=== PATIENT | female | born 1985 | race Caucasian/White ===

== ENCOUNTER 2020-01-05 12:58 | Emergency (ER) | payer SELFPAY ==
--- NOTE | 2020-01-05 14:06 | EDPHYS ---
Physician Documentation [facility] Name: Marilou Delgadillo Age: 34 yrs Sex: Female : 1985 Arrival Date: 01/05/2020 Time: 13:02 Bed 23 Private MD: ED Physician Malvin Lowe HPI: 01/04 14:03 This 34 yrs old Female presents to ER via Ambulatory with complaints of kb Vaginal Problem. 14:03 The patient presents with vaginal discharge, possible FB. Onset: The symptoms/episode kb began/occurred 2 day(s) ago. Modifying factors: The symptoms are alleviated by nothing, the symptoms are aggravated by nothing. Associated signs and symptoms: Pertinent positives: vaginal discharge. Severity of symptoms: At their worst the symptoms were mild, in the emergency department the symptoms are unchanged. The patient is sexually active. The patient has experienced a previous episode. The patient has not recently seen a physician. Pt reports she had some brown, malodorous discharge this morning and can't remember if she took out a tampon on Friday so is concerned that one is still in her vagina. Last day of period was Friday. 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 - Social history:: Smoking status: Patient reports the use of cigarette tobacco products, smokes one pack cigarettes per day. ROS: 14:00 Constitutional: Negative for fever, chills, and weight loss, Cardiovascular: Negative kb for chest pain, palpitations, and edema, Respiratory: Negative for shortness of breath, cough, wheezing, and pleuritic chest pain, Abdomen/GI: Negative for abdominal pain, nausea, vomiting, diarrhea, and constipation, Back: Negative for injury and pain, MS/Extremity: Negative for injury and deformity, Skin: Negative for injury, rash, and discoloration, Neuro: Negative for headache, weakness, numbness, tingling, and seizure. 14:00 : Positive for vaginal discharge, "possible tampon stuck in vagina". Exam: 14:01 Constitutional: This is a well developed, well nourished patient who is awake, alert, kb and in no acute distress. Head/Face: Normocephalic, atraumatic. Chest/axilla: Normal chest wall appearance and motion. Nontender with no deformity. No lesions are appreciated. Cardiovascular: Regular rate and rhythm with a normal S1 and S2. No gallops, murmurs, or rubs. Normal PMI, no JVD. No pulse deficits. Respiratory: Lungs have equal breath sounds bilaterally, clear to auscultation and percussion. No rales, rhonchi or wheezes noted. No increased work of breathing, no retractions or nasal flaring. Abdomen/GI: Soft, non-tender, with normal bowel sounds. No distension or tympany. No guarding or rebound. No evidence of tenderness throughout. Skin: Warm, dry with normal turgor. Normal color with no rashes, no lesions, and no evidence of cellulitis. MS/ Extremity: Pulses equal, no cyanosis. Neurovascular intact. Full, normal range of motion. Neuro: Awake and alert, GCS 15, oriented to person, place, time, and situation. Cranial nerves II-XII grossly intact. Motor strength 5/5 in all extremities. Sensory grossly intact. Cerebellar exam normal. Normal gait. 14:01 : Pelvic Exam: External exam: is normal, Speculum exam: normal findings, no bleeding is noted, no cervicitis, no discharge noted on exam, no FB noted, discharge, is not appreciated, the nurse was present for the exam. Vital Signs: 13:20 BP 112 / 70; Pulse 80; Resp 18; Temp 98.7(TE); Pulse Ox 100% on R/A; Weight 61.23 kg; ks7 Height 5 ft. 4 in. (162.56 cm); Pain 0/10; 14:06 BP 115 / 72; Pulse 79; Resp 18; Temp 98.7(O); Pulse Ox 100% on R/A; Pain 0/10; ks7 13:20 Body Mass Index 23.17 (61.23 kg, 162.56 cm) ks7 MDM: 13:40 Patient medically screened. kb 13:59 Data reviewed: vital signs, nurses notes. Data interpreted: Pulse oximetry: on room air kb is 100 %. Interpretation: normal. Counseling: I had a detailed discussion with the patient and/or guardian regarding: the historical points, exam findings, and any diagnostic results supporting the discharge/admit diagnosis, the need for outpatient follow up, an OB/Gyne specialist, to return to the emergency department if symptoms worsen or persist or if there are any questions or concerns that arise at home. ED course: Pt requests treatment for chlamydia because she has had it before and she is worried that she may have it again. States she has one partner, but he recently got out of retirement so she'd rather be safe and get treated. . 01/04 13:42 Order name: Pelvic Exam Setup; Complete Time: 13:51 kb Administered Medications: 13:56 Not Given (Physician Discretion): Rocephin 1 grams IV at calculated rate once; Given kb slow IV push per pharmacy instructions 14:06 Drug: Zithromax 500 mg Route: PO; ks7 14:06 Drug: Rocephin (cefTRIAXone) 250 mg Route: IM; Site: left gluteus; ks7 Disposition: 16:34 Co-signature as Attending Physician, Malvin Lowe MD I agree with the assessment and kdr plan of care. Disposition: 01/05/20 14:05 Discharged to Home. Impression: Person with feared health complaint in whom no diagnosis is made, Contact with and (suspected) exposure to infections with a predominantly sexual mode of transmission. - Condition is Stable. - Discharge Instructions: Sexually Transmitted Disease, [id number]. - Medication Reconciliation Form, Thank You Letter, Antibiotic Education, Prescription Opioid Use form. - Follow up: Emergency Department; When: As needed; Reason: Worsening of condition. Follow up: Private Physician; When: 2 - 3 days; Reason: Recheck today's complaints, Continuance of care, Re-evaluation by your physician. Signatures: Caity Mora, NEWS VIDEOTAPE EDITOR-C CHELSEA-Malvin Scott MD MD kdr Williams, Irene, RN RN iw Maeve Hayes, ALYSSA RN ks7 Corrections: (The following items were deleted from the chart) 14:18 14:05 01/05/2020 14:05 Discharged to Home. Impression: Person with feared health iw complaint in whom no diagnosis is made; Contact with and (suspected) exposure to infections with a predominantly sexual mode of transmission. Condition is Stable. Forms are Medication Reconciliation Form, Thank You Letter, Antibiotic Education, Prescription Opioid Use. Follow up: Emergency Department; When: As needed; Reason: Worsening of condition. Follow up: Private Physician; When: 2 - 3 days; Reason: Recheck today's complaints, Continuance of care, Re-evaluation by your physician. kb
--- NOTE | 2020-01-05 14:06 | ER ---
Nurse's Notes [facility] Name: Marilou Delgadillo Age: 34 yrs Sex: Female : 1985 Arrival Date: 01/05/2020 Time: 13:02 Bed 23 Private MD: Diagnosis: Person with feared health complaint in whom no diagnosis is made;Contact with and (suspected) exposure to infections with a predominantly sexual mode of transmission Presentation: 01/04 13:20 Chief complaint: Patient states: Possible FB (tampon) stuck in vagina. Also c/o brown ks7 discharge from vagina starting today. Pt finished period on Friday. Coronavirus screen: Client denies travel out of the [place] in the last 14 days. At this time, the client does not indicate any symptoms associated with coronavirus-19. The client reports previous COVID testing was negative. Date of collection: December 25, 2019. Ebola Screen: Patient negative for fever greater than or equal to 101.5 degrees Fahrenheit, and additional compatible Ebola Virus Disease symptoms Patient denies exposure to infectious person. Patient denies travel to an Ebola-affected area in the 21 days before illness onset. Initial Sepsis Screen: Does the patient meet any 2 criteria? No. Patient's initial sepsis screen is negative. Does the patient have a suspected source of infection? No. Patient's initial sepsis screen is negative. Risk Assessment: Do you want to hurt yourself or someone else? Patient reports no desire to harm self or others. Onset of symptoms was January 05, 2020. 13:20 Method Of Arrival: Ambulatory ks7 13:20 Acuity: OTIS 3 ks7 Triage Assessment: 13:27 General: Appears in no apparent distress. Behavior is calm, cooperative. Pain: Denies ks7 pain. 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 - Social history:: Smoking status: Patient reports the use of cigarette tobacco products, smokes one pack cigarettes per day. Screenin:42 Abuse screen: Denies threats or abuse. Denies injuries from another. Nutritional ks7 screening: No deficits noted. Tuberculosis screening: No symptoms or risk factors identified. Fall Risk None identified. Assessment: 13:42 General: Appears in no apparent distress. pt comes in from home, states she noticed ks7 brown discharge from her vagina starting today. pt thinks she may have a tampon stuck in her vagina. also c/o yeasty odor from vagina. pt denies any pain. aaox4, ambulatory, no s/s of distress.. Pain: Denies pain. Vital Signs: 13:20 BP 112 / 70; Pulse 80; Resp 18; Temp 98.7(TE); Pulse Ox 100% on R/A; Weight 61.23 kg; ks7 Height 5 ft. 4 in. (162.56 cm); Pain 0/10; 14:06 BP 115 / 72; Pulse 79; Resp 18; Temp 98.7(O); Pulse Ox 100% on R/A; Pain 0/10; ks7 13:20 Body Mass Index 23.17 (61.23 kg, 162.56 cm) ks7 ED Course: 13:02 Patient arrived in ED. as 13:11 Caity Mora FNP-C [facility]. kb 13:11 Malvin Lowe MD is Attending Physician. kb 13:24 Triage completed. ks7 13:27 Arm band placed on right wrist. ks7 13:30 Maeve Hayes RN is Primary Nurse. ks7 13:42 Resting quietly. ks7 13:42 Patient has correct armband on for positive identification. Placed in gown. Bed in low ks7 position. Call light in reach. Side rails up X2. 13:42 No provider procedures requiring assistance completed. ks7 13:51 Assist provider with pelvic exam: Set up pelvic tray. Performed by Caity SPENCER Patient tolerated well. 14:08 Patient did not have IV access during this emergency room visit. ks7 Administered Medications: 13:56 Not Given (Physician Discretion): Rocephin 1 grams IV at calculated rate once; Given kb slow IV push per pharmacy instructions 14:06 Drug: Zithromax 500 mg Route: PO; ks7 14:06 Drug: Rocephin (cefTRIAXone) 250 mg Route: IM; Site: left gluteus; ks7 Outcome: 14:05 Discharge ordered by MD. wilson 14:17 Discharged to home ambulatory. iw 14:17 Condition: good 14:17 Discharge instructions given to patient, Instructed on discharge instructions, follow up and referral plans. Demonstrated understanding of instructions, follow-up care. 14:18 Patient left the ED. iw Signatures: Caity Mora, RESIDENT CARE ASSOCIATE-C RESIDENT CARE ASSOCIATE-Neva Clark Irene, RN RN iw Maeve Hayes RN RN ks7
[2020-01-05] MEDS ORDERED: CEFTRIAXONE 250 MG/VIAL ONE (14:10)
[2020-01-05] MEDS ORDERED: AZITHROMYCIN 250 MG TAB ONE (14:10)
[2020-01-05 14:22] VITALS: TEMP 98.7; O2SAT 100
[2020-01-05 14:24] VITALS: BP 115/72
== END 2020-01-05 14:18 | disposition home or self-care (01) ==
LOC: ER 12:58
DX: Z71.1 Person with feared health complaint in whom no diagnosis is made (principal); Z20.2 Contact with and (suspected) exposure to infections with a predominantly sexual mode of transmission; F31.9 Bipolar disorder, unspecified; I10 Essential (primary) hypertension; Z98.82 Breast implant status; Z88.0 Allergy status to penicillin
CPT/HCPCS: 96372; 99283; J0696

== ENCOUNTER 2020-03-06 16:34 | Emergency (ER) | payer OTHER ==
--- NOTE | 2020-03-06 17:27 | EDPHYS ---
Physician Documentation [facility] Name: Marilou Delgadillo Age: 34 yrs Sex: Female : 1985 Arrival Date: 03/06/2020 Time: 16:36 Bed 8 Private MD: HEATHER Physician Arturo Blackwell HPI: 03/06 17:16 This 34 yrs old Female presents to ER via Ambulatory with complaints of Rash, jr8 Eye Pain, Headache. 17:16 The patient's rash thought to be caused by an unknown cause. The rash is located on the jr8 face. The rash can be described as erythematous, macular. Onset: The symptoms/episode began/occurred gradually. Associated signs and symptoms: Pertinent positives: itching, Pain. Severity of symptoms: At their worst the symptoms were mild in the emergency department the symptoms are unchanged. The patient has not experienced similar symptoms in the past. The patient has not recently seen a physician. Denies any facial treatments or getting any new types of makeups or any other products. Started as a few bumps but has since extended and getting more itchy and painful . 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 - Social history:: Smoking status: Patient reports the use of cigarette tobacco products, smokes one pack cigarettes per day. ROS: 17:16 Eyes: Negative for injury, pain, redness, and discharge, ENT: Negative for injury, jr8 pain, and discharge, Neck: Negative for injury, pain, and swelling, Cardiovascular: Negative for chest pain, palpitations, and edema, Respiratory: Negative for shortness of breath, cough, wheezing, and pleuritic chest pain, Abdomen/GI: Negative for abdominal pain, nausea, vomiting, diarrhea, and constipation, Back: Negative for injury and pain, MS/Extremity: Negative for injury and deformity, Neuro: Negative for headache, weakness, numbness, tingling, and seizure. 17:16 Skin: Positive for rash, of the face. Exam: 17:16 Eyes: Pupils equal round and reactive to light, extra-ocular motions intact. Lids and jr8 lashes normal. Conjunctiva and sclera are non-icteric and not injected. Cornea within normal limits. Periorbital areas with no swelling, redness, or edema. ENT: Nares patent. No nasal discharge, no septal abnormalities noted. Tympanic membranes are normal and external auditory canals are clear. Oropharynx with no redness, swelling, or masses, exudates, or evidence of obstruction, uvula midline. Mucous membranes moist. Neck: Trachea midline, no thyromegaly or masses palpated, and no cervical lymphadenopathy. Supple, full range of motion without nuchal rigidity, or vertebral point tenderness. No Meningismus. Cardiovascular: Regular rate and rhythm with a normal S1 and S2. No gallops, murmurs, or rubs. Normal PMI, no JVD. No pulse deficits. Respiratory: Lungs have equal breath sounds bilaterally, clear to auscultation and percussion. No rales, rhonchi or wheezes noted. No increased work of breathing, no retractions or nasal flaring. Abdomen/GI: Soft, non-tender, with normal bowel sounds. No distension or tympany. No guarding or rebound. No evidence of tenderness throughout. Back: No spinal tenderness. No costovertebral tenderness. Full range of motion. MS/ Extremity: Pulses equal, no cyanosis. Neurovascular intact. Full, normal range of motion. Neuro: Awake and alert, GCS 15, oriented to person, place, time, and situation. Cranial nerves II-XII grossly intact. Motor strength 5/5 in all extremities. Sensory grossly intact. Cerebellar exam normal. Normal gait. 17:16 Head/face: Noted is rash, urticarial and crusted rash noted to right and left sides of face along with left neck and perioral regions. Vital Signs: 16:57 BP 118 / 67; Pulse 63; Resp 16; Temp 97.8(TE); Pulse Ox 100% on R/A; tw2 17:36 BP 102 / 57; Pulse 77; Resp 17; Pulse Ox 100% on R/A; tw2 MDM: 16:46 Patient medically screened. jr8 17:16 Data reviewed: vital signs, nurses notes, and as a result, I will discharge patient. jr8 Data interpreted: Pulse oximetry: on room air is 100 %. Interpretation: normal. Counseling: I had a detailed discussion with the patient and/or guardian regarding: the historical points, exam findings, and any diagnostic results supporting the discharge/admit diagnosis, the need for outpatient follow up, a family practitioner, to return to the emergency department if symptoms worsen or persist or if there are any questions or concerns that arise at home. 03/06 17:08 Order name: Urine Dipstick--Ancillary (enter results) em1 03/06 17:08 Order name: Urine --Ancillary (enter results) em1 Administered Medications: 17:21 Drug: SOLU-Medrol 125 mg Route: IM; Site: right ventrogluteal; tw2 17:35 Follow up: Response: No adverse reaction tw2 Disposition: 03/07 07:34 Co-signature as Attending Physician, Arturo Blackwell MD I agree with the assessment and kalani plan of care. Disposition: 03/06/20 17:27 Discharged to Home. Impression: Rash and other nonspecific skin eruption. - Condition is Stable. - Discharge Instructions: Rash. - Prescriptions for Medrol (Luis) 4 mg Oral Tablets, Dose Pack - take 1 tablet by ORAL route as directed - follow package instructions; 1 packet. - Medication Reconciliation Form, Thank You Letter, Antibiotic Education, Prescription Opioid Use form. - Follow up: Private Physician; When: 2 - 3 days; Reason: Recheck today's complaints, Continuance of care, Re-evaluation by your physician. - Problem is new. - Symptoms have improved. Signatures: Dispatcher [employer] Arturo Gauthier MD MD cha Roszak, Josh, PA PA jr8 Debby Reyes RN RN tw2 Jimmy Kaplan RN RN jl7 Corrections: (The following items were deleted from the chart) 03/06 17:37 17:27 03/06/2020 17:27 Discharged to Home. Impression: Rash and other nonspecific skin tw2 eruption. Condition is Stable. Forms are Medication Reconciliation Form, Thank You Letter, Antibiotic Education, Prescription Opioid Use. Follow up: Private Physician; When: 2 - 3 days; Reason: Recheck today's complaints, Continuance of care, Re-evaluation by your physician. Problem is new. Symptoms have improved. jr8
--- NOTE | 2020-03-06 17:27 | ER ---
Nurse's Notes [facility] Name: Marilou Delgadillo Age: 34 yrs Sex: Female : 1985 Arrival Date: 03/06/2020 Time: 16:36 Bed 8 Private MD: Diagnosis: Rash and other nonspecific skin eruption Presentation: 03/06 16:59 Chief complaint: Patient states: Rash on face x 1 week, itchy, red, raised, "It seems jl to start out sort of like boils.". Coronavirus screen: Client denies travel out of the [place] in the last 14 days. At this time, the client does not indicate any symptoms associated with coronavirus-19. Ebola Screen: No symptoms or risks identified at this time. Initial Sepsis Screen: Does the patient meet any 2 criteria? No. Patient's initial sepsis screen is negative. Does the patient have a suspected source of infection? No. Patient's initial sepsis screen is negative. Risk Assessment: Do you want to hurt yourself or someone else? Patient reports no desire to harm self or others. Onset of symptoms was February 28, 2020. Care prior to arrival: None. Transition of care: patient was not received from another setting of care. 16:59 Method Of Arrival: Ambulatory [facility] 16:59 Acuity: OTIS 4 jl7 Triage Assessment: 16:57 General: Appears in no apparent distress. slender, Behavior is calm, cooperative, tw2 appropriate for age. Pain: Complains of pain in face and headache. 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 - Social history:: Smoking status: Patient reports the use of cigarette tobacco products, smokes one pack cigarettes per day. Screenin:49 Abuse screen: Denies threats or abuse. Nutritional screening: No deficits noted. tw2 Tuberculosis screening: No symptoms or risk factors identified. Fall Risk None identified. Assessment: 17:02 General: Appears in no apparent distress. uncomfortable, Behavior is calm, cooperative, jl7 appropriate for age. Neuro: Level of Consciousness is awake, alert, obeys commands, Oriented to person, place, time, situation. Cardiovascular: Patient's skin is warm and dry. Respiratory: Airway is patent Respiratory effort is even, unlabored, Respiratory pattern is regular, symmetrical. GI: Abdomen is round non-distended. : No signs and/or symptoms were reported regarding the genitourinary system. Derm: Skin is pink, warm \\T\\ dry. Rash noted that is itchy, red, raised, on face. 17:36 Reassessment: Patient appears in no apparent distress at this time. No changes from tw2 previously documented assessment. Patient and/or family updated on plan of care and expected duration. Pain level reassessed. Patient is alert, oriented x 3, equal unlabored respirations, skin warm/dry/pink. Vital Signs: 16:57 BP 118 / 67; Pulse 63; Resp 16; Temp 97.8(TE); Pulse Ox 100% on R/A; tw2 17:36 BP 102 / 57; Pulse 77; Resp 17; Pulse Ox 100% on R/A; tw2 ED Course: 16:36 Patient arrived in ED. as 16:46 Christopher August [facility]. jr8 16:46 Arturo Blackwell MD is Attending Physician. jr8 16:49 Debby Reyes, ALYSSA is Primary Nurse. tw2 16:56 Bed in low position. Call light in reach. Pulse ox on. NIBP on. tw2 16:57 Arm band placed on. tw2 17:00 Triage completed. jl7 17:36 No provider procedures requiring assistance completed. Patient did not have IV access tw2 during this emergency room visit. Administered Medications: 17:21 Drug: SOLU-Medrol 125 mg Route: IM; Site: right ventrogluteal; tw2 17:35 Follow up: Response: No adverse reaction tw2 Outcome: 17:27 Discharge ordered by MD. adhikari 17:36 Discharged to home ambulatory. tw2 17:36 Condition: stable 17:36 Discharge instructions given to patient, Instructed on discharge instructions, follow up and referral plans. medication usage, Demonstrated understanding of instructions, follow-up care, medications, Prescriptions given X 1. 17:37 Patient left the ED. tw2 Signatures: Neva Cooper Josh, PA PA jr8 Debby Reyes RN RN tw2 Jimmy Kaplan RN RN jl7 Corrections: (The following items were deleted from the chart) 16:58 16:57 BP 118 / 67; Pulse 63bpm; Resp 16bpm; Pulse Ox 100% RA; tw2 tw2
[2020-03-06] MEDS ORDERED: METHYLPREDNISOLONE 125 MG INJ ONE (17:30)
[2020-03-06 17:48] LABS: Urine Blood NEGATIVE (NEG); Urine Glucose NEGATIVE (NEG); Urine Protein NEGATIVE (NEG); Urine pH 7.5 (5.0-7.0)
[2020-03-06 17:53] VITALS: TEMP 97.8; O2SAT 100
[2020-03-06 17:54] VITALS: BP 102/57
== END 2020-03-06 17:37 | disposition home or self-care (01) ==
LOC: ER 16:34
DX: R21 Rash and other nonspecific skin eruption (principal); F17.210 Nicotine dependence, cigarettes, uncomplicated; I10 Essential (primary) hypertension; F31.9 Bipolar disorder, unspecified; Z88.0 Allergy status to penicillin; Z88.8 Allergy status to other drugs, medicaments and biological substances; Z98.82 Breast implant status
CPT/HCPCS: 81025; 81003; 96372; 99283; J2930

== ENCOUNTER 2021-05-18 16:32 | Observation (INO) | payer OTHER ==
--- OUTSIDE RECORDS SUMMARY | 2021-05-18 16:35 | XMS REPORT | Continuity of Care Document ---
:1985 Author Organization [facility] t Address [address] [place] [address] Care Team Providers Name Role Phone DONALD Attending Clinician Unavailable Sofiya Attending Clinician Unavailable JIMMY PRESSLEY Admitting Clinician Unavailable Sofiya Admitting Clinician Unavailable Payers Payer Name Policy Type Policy Number Effective Date Expiration Date S ource Problems This patient has no known problems. Allergies, Adverse Reactions, Alerts This patient has no known allergies or adverse reactions. Medications This patient has no known medications. Procedures This patient has no known procedures. Encounters Start End Encounter Admission Attending Care Care Encounter Source Date/Time Date/Time Type Type Clinicians Facility Department ID 2021-05-13 2021-05-14 Outpatient [facility] [id number] 22:34:00 17:28:[address] [facility] 2020-04-12 2020-04-12 Outpatient Sofiya [facility] [id number] [place] 02:47:00 02:47:00 [id number] Results This patient has no known results.
[2021-05-18] MEDS ORDERED: MORPHINE 4 MG/ML SYR ONE (20:01)
[2021-05-18] MEDS ORDERED: NA CHLORIDE 0.9% 1,000 ML ONE ×2 (20:01→22:28)
[2021-05-18] MEDS ORDERED: ONDANSETRON 4 MG/2 ML VIAL ONE (20:01)
[2021-05-18] MEDS ORDERED: FAMOTIDINE 20 MG/2 ML VIAL IV ONE (20:01)
--- NOTE | 2021-05-18 20:36 | RAD REPORT ---
EXAM DESCRIPTION: RAD - Chest Single View - 05/18/2021 8:05 pm CLINICAL HISTORY: COUGH Chest pain. COMPARISON: CHEST PA AND LAT 2 VIEW dated 09/20/2013; CHEST PA AND LAT 2 VIEW dated 09/17/2013 FINDINGS: Portable technique limits examination quality. Interstitial lung markings are mildly prominent which could indicate mild viral infection. No focal c onsolidation typical of bacterial pneumonia. The heart is normal in size. No displaced fractures.
[2021-05-18 20:38] LABS: Absolute Lymphocytes (CBC) 1.1 K/uL (0.7-4.9); Hematocrit 36.1 % (36.0-45.0); Lymphocytes % 12.7 % (15.3-44.8); MPV 7.5 fL (7.6-11.3); RBC Red Blood Cell Count 4.16 M/uL (3.86-4.86)
[2021-05-18 20:41] LABS: Protime INR 1.47
[2021-05-18 20:54] LABS: Urine Blood 1+ (Negative); Urine Glucose Negative (Negative); Urine Protein Negative (Negative); Urine Specific Gravity >=1.030 (1.005-1.030)
[2021-05-18 20:58] LABS: ALT/SGPT 20 U/L (12-78); AST/SGOT 9 U/L (15-37); Albumin 2.5 g/dL (3.4-5.0); Alkaline Phosphatase 103 U/L (45-117); BUN Blood Urea Nitrogen 8 mg/dL (7-18); Bicarbonate 24 mmol/L (21-32); Bilirubin Direct 0.1 mg/dL (0-0.2); Bilirubin Total 0.3 mg/dL (0.2-1.0); Glucose Level 93 mg/dL (74-106); Lipase 26 U/L (73-393); Magnesium 1.9 mg/dL (1.8-2.4); NT PRO-BNP 190 pg/mL (<125); Potassium 3.6 mmol/L (3.5-5.1); Protein, Total 7.5 g/dL (6.4-8.2); Sodium Level 134 mmol/L (136-145); Troponin (Emerg Dept Use Only) < 0.02 ng/mL (0.0-0.045)
[2021-05-18 21:08] LABS: Barbiturates NEGATIVE (NEGATIVE); Benzodiazepines NEGATIVE (NEGATIVE); Cocaine NEGATIVE (NEGATIVE); METHAMPHETAM POSITIVE (NEGATIVE); Methadone NEGATIVE (NEGATIVE); Opiates NEGATIVE (NEGATIVE); Phencyclidine NEGATIVE (NEGATIVE); THC Cannibis POSITIVE (NEGATIVE)
--- NOTE | 2021-05-18 21:34 | RAD REPORT ---
EXAM DESCRIPTION: CT - Chest For Pe Angio - 05/18/2021 9:17 pm CLINICAL HISTORY: Chest pain. Abdominal distention;Chest pain COMPARISON: CTANGIO CHEST FOR PE dated 09/20/2013 TECHNIQUE: CT angiogram of the pulmonary arteries was performed with MIP. All CT scans are performed using dose optimization technique as appropriate and may include automated exposure control or mA/KV adjustment according to patient size. FINDINGS: No evidence of pulmonary thromboembolism. No acute aortic finding demonstrated. The lungs are clear. No significant pericardial or pleural fluid. No concerning bony finding. IMPRESSION: No evidence of pulmonary thromboembolism. No acute lung findings.
--- NOTE | 2021-05-18 21:41 | RAD REPORT ---
EXAM DESCRIPTION: CTAbdomen Pelvis W Contrast - 05/18/2021 9:17 pm CLINICAL HISTORY: Abdominal pain. ABD PAIN COMPARISON: No comparisons TECHNIQUE: Biphasic CT imaging of the abdomen and pelvis was performed with 100 ml non-ionic IV cont rast. All CT scans are performed using dose optimization technique as appropriate and may include automated exposure control or mA/KV adjustment according to patient size. FINDINGS: Small benign calcified granuloma is present in the left lung base The liver contains several benign cysts. The spleen, pancreas, adrenal glands and kidneys are within normal limits. There is moderate stool seen throughout the colon. The intra- abdominal fat and omental fat appears e dematous. There is mild fluid in the pericolic gutters. The appendix is difficult to discretely loc calixto. Fluid-filled structures are present in the lower abdomen and pelvis which could represent smal l bowel loops however likely oral contrast limits examination. No suspicious bony findings. IMPRESSION: An inflammatory process is suspected within the intra-abdominopelvic cavity with an mode rately edematous appearance to the intra-abdominal, intrapelvic and omental fat. Several fluid-filled structures are present in the lower abdomen pelvis which could be small intestine but incompletely a ssessed due to lack of oral contrast material. Repeat examination of the abdomen and pelvis following oral contrast would be recommended for further evaluation.
--- NOTE | 2021-05-18 22:17 | EDPHYS ---
Physician Documentation [facility] Name: Marilou Delgadillo Age: 35 yrs Sex: Female : 1985 Arrival Date: 05/18/2021 Time: 16:34 Bed 8 Private MD: HEATHER Physician Arturo Blackwell HPI: 05/18 19:52 This 35 yrs old Female presents to ER via Ambulatory with complaints of Pain kalani In Lungs. 19:52 The patient or guardian reports chest pain that is located primarily in the anterior kalani chest wall, bilaterally. The patient presents with abdominal pain in the upper abdomen. Onset: The symptoms/episode began/occurred 1 day(s) ago. The symptoms do not radiate. The pain does not radiate. Associated signs and symptoms: Pertinent positives: nausea. Associated signs and symptoms: Pertinent positives: abdominal pain. The chest pain is described as sharp. Modifying factors: The symptoms are alleviated by nothing. the symptoms are aggravated by deep breath, movement. Severity of pain: At its worst the pain was moderate in the emergency department the pain is unchanged. The patient has not experienced similar symptoms in the past. Historical: - Allergies: 17:19 Amitriptyline; ss 17:19 PENICILLINS; ss - PMHx: 17:19 ADD/ADHD; Anxiety; Bipolar disorder; Hypertension; PTSD; restless leg syndrome; ss - Immunization history:: Adult Immunizations up to date. - Social history:: Smoking status: Patient reports the use of cigarette tobacco products, smokes one pack cigarettes per day. Patient uses alcohol, occasionally. street drugs, marijuana. - Family history:: not pertinent. ROS: 19:52 Constitutional: Negative for fever, chills, and weight loss, Eyes: Negative for injury, kalani pain, redness, and discharge, ENT: Negative for injury, pain, and discharge, Neck: Negative for injury, pain, and swelling, Back: Negative for injury and pain, : Negative for injury, bleeding, discharge, and swelling, MS/Extremity: Negative for injury and deformity, Skin: Negative for injury, rash, and discoloration, Neuro: Negative for headache, weakness, numbness, tingling, and seizure, Psych: Negative for depression, anxiety, suicide ideation, homicidal ideation, and hallucinations, Allergy/Immunology: Negative for hives, rash, and allergies, Endocrine: Negative for neck swelling, polydipsia, polyuria, polyphagia, and marked weight changes, Hematologic/Lymphatic: Negative for swollen nodes, abnormal bleeding, and unusual bruising. 19:52 Cardiovascular: Positive for chest pain, with movement. 19:52 Respiratory: Positive for cough, with no reported sputum, shortness of breath, at rest. 19:52 Abdomen/GI: Positive for abdominal pain, of the right upper quadrant and left upper quadrant. Exam: 19:52 Constitutional: This is a well developed, well nourished patient who is awake, alert, kalani and in no acute distress. Head/Face: Normocephalic, atraumatic. Eyes: Pupils equal round and reactive to light, extra-ocular motions intact. Lids and lashes normal. Conjunctiva and sclera are non-icteric and not injected. Cornea within normal limits. Periorbital areas with no swelling, redness, or edema. ENT: Nares patent. No nasal discharge, no septal abnormalities noted. Tympanic membranes are normal and external auditory canals are clear. Oropharynx with no redness, swelling, or masses, exudates, or evidence of obstruction, uvula midline. Mucous membranes moist. Neck: Trachea midline, no thyromegaly or masses palpated, and no cervical lymphadenopathy. Supple, full range of motion without nuchal rigidity, or vertebral point tenderness. No Meningismus. Chest/axilla: Normal chest wall appearance and motion. Nontender with no deformity. No lesions are appreciated. Cardiovascular: Regular rate and rhythm with a normal S1 and S2. No gallops, murmurs, or rubs. Normal PMI, no JVD. No pulse deficits. Respiratory: Lungs have equal breath sounds bilaterally, clear to auscultation and percussion. No rales, rhonchi or wheezes noted. No increased work of breathing, no retractions or nasal flaring. Back: No spinal tenderness. No costovertebral tenderness. Full range of motion. Female : Normal external genitalia. Skin: Warm, dry with normal turgor. Normal color with no rashes, no lesions, and no evidence of cellulitis. MS/ Extremity: Pulses equal, no cyanosis. Neurovascular intact. Full, normal range of motion. Neuro: Awake and alert, GCS 15, oriented to person, place, time, and situation. Cranial nerves II-XII grossly intact. Motor strength 5/5 in all extremities. Sensory grossly intact. Cerebellar exam normal. Normal gait. 19:52 Abdomen/GI: Inspection: abdomen appears normal, Bowel sounds: normal, Liver: tenderness, that is mild, Hernia: not appreciated. 21:08 ECG was reviewed by the Attending Physician. [facility] Vital Signs: 17:15 BP 127 / 82; Pulse 100; Resp 18; Temp 98.2; Pulse Ox 100% ; Weight 55.34 kg; Height 5 ss ft. 2 in. (157.48 cm); 21:09 BP 116 / 74; Pulse 94; Resp 19 S; Pulse Ox 100% on R/A; as6 21:54 BP 116 / 66; Pulse 92; Resp 17 S; Pulse Ox 96% on R/A; as6 17:15 Body Mass Index 22.31 (55.34 kg, 157.48 cm) ss MDM: 19:23 Patient medically screened. kalani 19:56 Differential diagnosis: abnormal EKG, acute myocardial infarction, acute pericarditis, kalani anxiety, Cholelithiasis hiatal hernia, pancreatitis, peptic ulcer disease, pneumonia, pneumothorax, pulmonary embolus, stable angina, unstable angina, bowel obstruction, Cholelithiasis, diverticulitis, gastritis, GI Bleed, Menorrhagia, myocardia ischemia or infarction, non-specific abd pain, pancreatitis, Peritonitis, Pyelonephritis, Ureterolithiasis, urinary tract infection. HEART Score: History: Slightly Suspicious (0), ECG: Normal (0), Age: < or = 45 years (0), Risk Factors: No Risk Factors Known (0), Troponin: < or = 1 x Normal Limit (0). The patient's deep vein thrombosis risk score was calculated as follows: Total Score: 0. This patient was found to be at low risk for a deep vein thrombosis by using the Well's assessment criteria. The patient's pulmonary embolism risk score was calculated as follows: suspected deep vein thrombosis (3 Pts) the patients heart rate is greater than 100 beats per minute (1.5 Pts) the patient has a history of a previous deep vein thrombosis or pulmonary embolism (1.5 Pts) Total Score: greater than 6 points. This patient was found to be at low risk for a pulmonary embolism by using the Well's assessment criteria. MARU Risk Score: TOTAL SCORE = 0. Data reviewed: vital signs, nurses notes, lab test result(s), EKG, radiologic studies, CT scan, plain films. 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 Test interpretation: by ED physician or midlevel provider: ECG, plain radiologic studies. Counseling: I had a detailed discussion with the patient and/or guardian regarding: the historical points, exam findings, and any diagnostic results supporting the discharge/admit diagnosis, lab results, radiology results. 05/18 19:49 Order name: Basic Metabolic Panel; Complete Time: 21:14 [facility] 05/18 19:49 Order name: CBC with Diff; Complete Time: 20:53 [facility] 05/18 19:49 Order name: LFT's; Complete Time: 21:14 [facility] 05/18 19:49 Order name: Magnesium; Complete Time: 21:14 [facility] 05/18 19:49 Order name: NT PRO-BNP; Complete Time: 21:14 [facility] 05/18 19:49 Order name: PT-INR; Complete Time: 20:53 [facility] 05/18 19:49 Order name: Troponin (emerg Dept Use Only); Complete Time: 21:14 [facility] 05/18 19:49 Order name: Lipase; Complete Time: 21:14 [facility] 05/18 19:49 Order name: Urine Culture [facility] 05/18 19:49 Order name: UDS; Complete Time: 21:14 [facility] 05/18 19:49 Order name: SARS-COV-2 RT PCR (Document "Date of Onset" if Symptomatic); Complete Time: [facility] 21:51 05/18 20:53 Order name: Urine Dipstick-Ancillary; Complete Time: 21:14 [facility] 05/18 20:54 Order name: Urine --Ancillary (enter results); Complete Time: 21:14 cs9 05/18 22:21 Order name: Basic Metabolic Panel [facility] 05/18 19:49 Order name: XRAY Chest (1 view); Complete Time: 20:53 [facility] 05/18 19:49 Order name: CT Chest For PE Angio; Complete Time: 21:51 [facility] 05/18 19:49 Order name: CT Abd/Pelvis - IV Contrast Only; Complete Time: 21:51 [facility] 05/18 19:49 Order name: US Abdomen Limited [facility] 05/18 21:54 Order name: Extrem Venous W Compression Ramiro US la1 05/18 22:14 Order name: Abdomen [facility] 05/18 22:21 Order name: Basic Metabolic Panel [facility] 05/18 22:21 Order name: CBC with Automated Diff [facility] 05/18 22:21 Order name: CBC with Automated Diff [facility] 05/18 22:21 Order name: Lipase [facility] 05/18 22:21 Order name: Lipase [facility] 05/18 22:21 Order name: Liver (Hepatic) Function [facility] 05/18 22:21 Order name: Liver (Hepatic) Function [facility] 05/19 07:19 Order name: US [facility] 05/19 07:19 Order name: [facility] 05/18 19:49 Order name: EKG; Complete Time: 19:50 [facility] 05/18 19:49 Order name: Cardiac monitoring; Complete Time: 20:25 [facility] 05/18 19:49 Order name: EKG - Nurse/Tech; Complete Time: 20:25 [facility] 05/18 19:49 Order name: IV Saline Lock; Complete Time: 20:25 [facility] 05/18 19:49 Order name: Labs collected and sent; Complete Time: 20:35 [facility] 05/18 19:49 Order name: O2 Per Protocol; Complete Time: 20:25 [facility] 05/18 19:49 Order name: O2 Sat Monitoring; Complete Time: 20:25 [facility] 05/18 19:49 Order name: Urine Dipstick-Ancillary (obtain specimen); Complete Time: 20:53 [facility] 05/18 19:49 Order name: Urine Test (obtain specimen); Complete Time: 20:53 [facility] 05/18 22:21 Order name: NPO EDID EC:08 Rate is 96 beats/min. Rhythm is regular. QRS [place] is Normal. QRS interval is normal. QT kalani interval is normal. No Q waves. T waves are Normal. No ST changes noted. Clinical impression: NSR w/ Non-specific ST/T Changes and No evidence of ischemia. Interpreted by me. Reviewed by me. Administered Medications: 20:36 Drug: NS 0.9% 1000 ml Route: IV; Rate: 1 bolus; Site: right forearm; 05/19 04:14 Follow up: Response: No adverse reaction; IV Status: Completed infusion; IV Intake: as6 1000ml 05/18 20:38 Drug: Pepcid (famotidine) 20 mg Route: IVP; Site: right forearm; 05/19 04:15 Follow up: Response: No adverse reaction as6 05/18 20:39 Drug: morphine 4 mg Route: IVP; Site: right forearm; as6 05/19 05:06 Follow up: Response: No adverse reaction; RASS: Alert and Calm (0) as6 05/18 20:39 Drug: Zofran (Ondansetron) 4 mg Route: IVP; Site: right forearm; as6 05/19 05:07 Follow up: Response: No adverse reaction as05/18 22:34 Drug: morphine 2 mg Route: IVP; Site: right forearm; clif 05/19 05:07 Follow up: Response: No adverse reaction; RASS: Alert and Calm (0) as6 05/18 22:34 Drug: Zofran (Ondansetron) 4 mg Route: IVP; Site: right forearm; clif 05/19 05:08 Follow up: Response: No adverse reaction as6 05/18 22:35 Drug: NS 0.9% 1000 ml Route: IV; Rate: 125 ml/hr; Site: right forearm; clif 05/19 05:07 Follow up: Response: No adverse reaction; IV Status: Completed infusion; IV Intake: as6 1000ml 03:53 Drug: Rocephin (cefTRIAXone) 1 grams Route: IV; Rate: per protocol; Site: right forearm;as6 05:08 Follow up: Response: No adverse reaction; IV Status: Completed infusion; IV Intake: [id number] 04:13 Drug: Zofran (Ondansetron) 4 mg Route: IVP; Site: right forearm; as6 05:09 Follow up: Response: No adverse reaction as6 04:14 Drug: morphine 2 mg Route: IVP; Site: right forearm; as6 05:08 Follow up: Response: No adverse reaction; RASS: Alert and Calm (0) as6 Disposition Summary: 05/18/21 22:16 Hospitalization Ordered Hospitalization Status: Observation kalani Provider: Raghu Jauregui cha Condition: Stable kalani Problem: new kalani Symptoms: have improved kalani Bed/Room Type: Standard kalani Location: [facility] ER HOLD(05/18/21 23:20) mw Room Assignment: ERHOLD-(05/18/21 23:20) mw Diagnosis - Abdominal pain, Generalized - INTRA-ABDOMINAL INFLAMATORY PROCESS, NON SPECIFIC kalani Forms: - Medication Reconciliation Form kalani - SBAR form [facility] Signatures: Dispatcher [employer] EDMS Yesica Negro RN RN mw Anderson, Corey, MD MD cha Smirch, Shelby, RN RN ss Attema, Lee, CHELSEA-C CHELSEA-Cla1 Zulma Bowman tw5 Josef Garcia RN RN as6 Liliana Bal RN RN clif Corrections: (The following items were deleted from the chart) 05/18 22:14 21:54 Abdomen Pelvis W Con+CT.RAD.BRZ ordered. [facility] 23: 22:16 Telemetry/MedSurg (observation) [facility] 23:20 22:16 [facility]
--- NOTE | 2021-05-18 22:17 | ER ---
Nurse's Notes [facility] Name: Marilou Delgadillo Age: 35 yrs Sex: Female : 1985 Arrival Date: 05/18/2021 Time: 16:34 Bed 8 Private MD: Diagnosis: Abdominal pain, [id number] INFLAMATORY PROCESS, NON SPECIFIC Presentation: 05/18 17:15 Chief complaint: Patient states: Pt states she was discharged from [facility] ss days and was dx with PE in lower right lung and it's hurting her bad. On Eliquis x5 days. Pt is most concerned today with amount of pain. Coronavirus screen: Vaccine status: Patient reports being unvaccinated. Ebola Screen: Patient negative for fever greater than or equal to 101.5 degrees Fahrenheit, and additional compatible Ebola Virus Disease symptoms Patient denies exposure to infectious person. Patient denies travel to an Ebola-affected area in the 21 days before illness onset. Initial Sepsis Screen: Does the patient meet any 2 criteria? HR > 90 bpm. Does the patient have a suspected source of infection? No. Patient's initial sepsis screen is negative. Risk Assessment: Do you want to hurt yourself or someone else? Patient reports no desire to harm self or others. Onset of symptoms was May 13, 2021. 17:15 Method Of Arrival: Ambulatory ss 17:15 Acuity: OTIS 3 ss Triage Assessment: 17:20 General: Appears uncomfortable, Behavior is calm, cooperative, appropriate for age. ss Pain: Complains of pain in "lung where PE is". Historical: - Allergies: 17:19 Amitriptyline; ss 17:19 PENICILLINS; ss - PMHx: 17:19 ADD/ADHD; Anxiety; Bipolar disorder; Hypertension; PTSD; restless leg syndrome; ss - Immunization history:: Adult Immunizations up to date. - Social history:: Smoking status: Patient reports the use of cigarette tobacco products, smokes one pack cigarettes per day. Patient uses alcohol, occasionally. street drugs, marijuana. - Family history:: not pertinent. Screenin:20 Abuse screen: Denies threats or abuse. Denies injuries from another. Nutritional ss screening: No deficits noted. Tuberculosis screening: No symptoms or risk factors identified. Fall Risk None identified. Assessment: 20:53 General: Appears uncomfortable, Behavior is calm, cooperative. Pain: Complains of pain as6 in chest and abdomen. Neuro: Level of Consciousness is awake, alert, obeys commands, Oriented to person, place, time, situation. Cardiovascular: Reports chest pain, shortness of breath, Capillary refill < 3 seconds Patient's skin is warm and dry. Chest pain is located in right left anterior chest wall. Respiratory: Reports shortness of breath at rest Airway is patent Trachea midline Respiratory effort is even, shallow, Respiratory pattern is regular, symmetrical. GI: Reports lower abdominal pain, nausea. Derm: Skin is intact, is healthy with good turgor. 21:54 Reassessment: Patient appears in no apparent distress at this time. pt reports feeling as6 better but pain is coming back from being moved around in [place], provider notified Patient states feeling better. General:. Vital Signs: 17:15 BP 127 / 82; Pulse 100; Resp 18; Temp 98.2; Pulse Ox 100% ; Weight 55.34 kg; Height 5 ss ft. 2 in. (157.48 cm); 21:09 BP 116 / 74; Pulse 94; Resp 19 S; Pulse Ox 100% on R/A; as6 21:54 BP 116 / 66; Pulse 92; Resp 17 S; Pulse Ox 96% on R/A; as6 17:15 Body Mass Index 22.31 (55.34 kg, 157.48 cm) ED Course: 16:34 Patient arrived in ED. ds1 17:19 Triage completed. ss 17:20 Arm band placed on left wrist. ss 19:01 Josef Garcia, ALYSSA is Primary Nurse. as6 19:23 Arturo Blackwell MD is Attending Physician. [facility] 20:06 XRAY Chest (1 view) In Process Unspecified. EDMS 20:45 Inserted saline lock: 20 gauge in right forearm, using aseptic technique. Blood as6 collected. 20:53 SARS-COV-2 RT PCR (Document "Date of Onset" if Symptomatic) Sent. as6 20:55 Placed in gown. Bed in low position. Call light in reach. Side rails up X2. Adult w/ as6 patient. monitoring engineer on. Pulse ox on. NIBP on. Door closed. Lights dimmed. Warm blanket given. 21:16 CT Chest For PE Angio In Process Unspecified. EDMS 21:16 CT Abd/Pelvis - IV Contrast Only In Process Unspecified. EDMS 22:11 Raghu Jauregui MD is Hospitalizing Provider. [facility] 22:35 Pt provided a bedside commode for safety and she was able to void without difficulty. 05/19 05:42 No provider procedures requiring assistance completed. Patient admitted, IV remains in as6 place. 07:38 Primary Nurse role handed off by Josef Garcia RN bd Administered Medications: 05/18 20:36 Drug: NS 0.9% 1000 ml Route: IV; Rate: 1 bolus; Site: right forearm; as05/19 04:14 Follow up: Response: No adverse reaction; IV Status: Completed infusion; IV Intake: as6 1000ml 05/18 20:38 Drug: Pepcid (famotidine) 20 mg Route: IVP; Site: right forearm; 05/19 04:15 Follow up: Response: No adverse reaction 05/18 20:39 Drug: morphine 4 mg Route: IVP; Site: right forearm; 05/19 05:06 Follow up: Response: No adverse reaction; RASS: Alert and Calm (0) 05/18 20:39 Drug: Zofran (Ondansetron) 4 mg Route: IVP; Site: right forearm; 05/19 05:07 Follow up: Response: No adverse reaction 05/18 22:34 Drug: morphine 2 mg Route: IVP; Site: right forearm; 05/19 05:07 Follow up: Response: No adverse reaction; RASS: Alert and Calm (0) 05/18 22:34 Drug: Zofran (Ondansetron) 4 mg Route: IVP; Site: right forearm; 05/19 05:08 Follow up: Response: No adverse reaction 05/18 22:35 Drug: NS 0.9% 1000 ml Route: IV; Rate: 125 ml/hr; Site: right forearm; 05/19 05:07 Follow up: Response: No adverse reaction; IV Status: Completed infusion; IV Intake: as6 1000ml 03:53 Drug: Rocephin (cefTRIAXone) 1 grams Route: IV; Rate: per protocol; Site: right forearm;as 05:08 Follow up: Response: No adverse reaction; IV Status: Completed infusion; IV Intake: [id number] 04:13 Drug: Zofran (Ondansetron) 4 mg Route: IVP; Site: right forearm; as6 05:09 Follow up: Response: No adverse reaction as6 04:14 Drug: morphine 2 mg Route: IVP; Site: right forearm; as6 05:08 Follow up: Response: No adverse reaction; RASS: Alert and Calm (0) as6 Intake: 04:14 IV: 1000ml; Total: 1000ml. as6 05:07 IV: 1000ml; Total: 2000ml. as6 05:08 IV: 50ml; Total: 2050ml. as6 Outcome: 05/18 22:16 Decision to Hospitalize by Provider. [facility] 05/19 05:42 Admitted to as Condition: stable 09:22 Patient left the ED. iw Signatures: Dispatcher [employer] EDMS Emily Young Corey, MD MD cha Sanford, Demi ds1 Joi Richmond RN RN iw Juliet Truong RN RN ss Slawson, Ashby, RN RN as6 Liliana Bal RN RN clif
[2021-05-18] MEDS ORDERED: MORPHINE 4 MG/ML SYR IV PRN (22:20)
[2021-05-18] MEDS ORDERED: ONDANSETRON 4 MG/2 ML VIAL IV PRN (22:20)
[2021-05-18] MEDS ORDERED: ACETAMINOPHEN 325 MG TABLET PO PRN (22:20)
[2021-05-18] MEDS ORDERED: MORPHINE 2 MG/ML SYR ONE (22:28)
[2021-05-18] MEDS ORDERED: D5 0.45 NS 1,000 ML IV SCH (23:00)
[2021-05-19 00:36] VITALS: BMI 22.3
[2021-05-19] MEDS ORDERED: NA CHLORIDE 0.9% 50 ML ONE (03:33)
[2021-05-19] MEDS ORDERED: CEFTRIAXONE 1000 MG/VIAL ONE (03:33)
--- NOTE | 2021-05-19 03:36 | RAD REPORT ---
EXAM DESCRIPTION: CT - Abdomen Pelvis Wo Contrast - 05/19/2021 12:40 am CLINICAL HISTORY: Abdominal pain. ABD PAIN COMPARISON: Abdomen Pelvis W Contrast dated 05/18/2021 TECHNIQUE: CT imaging of the abdomen and pelvis was performed without contrast. Oral contrast was ad ministered. Solid organ and vascular assessment is limited due to lack of IV contrast. All CT scans are performed using dose optimization technique as appropriate and may include automated exposure control or mA/KV adjustment according to patient size. FINDINGS: The lower lung rice are clear. The liver, spleen, pancreas, adrenal glands and kidneys are within normal limits for a limited non-co ntrast examination. Mildly thickened small bowel loops are present in the left aspect of the abdomen. Intra-abdominal and intrapelvic fat is mildly edematous. No abscess, bowel obstruction or free air. The appendix is norm al. Moderately severe fecal retention. The osseous structures are within normal limits. IMPRESSION: Mild nonspecific small-bowel enteritis pattern is suspected. No evidence of appendicitis . Moderately severe fecal retention. A limited non-contrast examination was performed as detailed.
[2021-05-19 03:43] LABS: Absolute Lymphocytes (CBC) 1.7 K/uL (0.7-4.9); Hematocrit 36.7 % (36.0-45.0); Lymphocytes % 20.8 % (15.3-44.8); MPV 7.8 fL (7.6-11.3); RBC Red Blood Cell Count 4.14 M/uL (3.86-4.86)
[2021-05-19 03:58] LABS: ALT/SGPT 20 U/L (12-78); AST/SGOT 10 U/L (15-37); Albumin 2.4 g/dL (3.4-5.0); Alkaline Phosphatase 105 U/L (45-117); Bilirubin Direct < 0.1 mg/dL (0-0.2); Bilirubin Total 0.3 mg/dL (0.2-1.0); Protein, Total 7.4 g/dL (6.4-8.2)
[2021-05-19] MEDS ORDERED: ONDANSETRON 4 MG/2 ML VIAL ONE (04:08)
[2021-05-19] MEDS ORDERED: MORPHINE 2 MG/ML SYR ONE (04:08)
[2021-05-19 04:57] VITALS: BP 103/60; TEMP 97.9
--- NOTE | 2021-05-19 07:18 | RAD REPORT ---
EXAM DESCRIPTION: US - Abdomen Exam Limited - 05/18/2021 11:18 pm CLINICAL HISTORY: ABD PAIN COMPARISON: Abdomen Pelvis W Contrast dated 05/18/2021 FINDINGS: The gallbladder demonstrates no gallstones. No pericholecystic fluid or gallbladder wall t hickening. The common bile duct is normal measuring 2 mm. The liver demonstrates no findings of intrahepatic biliary dilatation. IMPRESSION: Negative for cholelithiasis or acute cholecystitis. No biliary ductal dilatation.
--- NOTE | 2021-05-19 07:19 | RAD REPORT ---
EXAM DESCRIPTION: US - Extrem Venous W Compress Ramiro - 05/18/2021 11:18 pm CLINICAL HISTORY: PE, rule out DVT COMPARISON: None. TECHNIQUE: Real-time sonographic evaluation of the bilateral lower extremity deep venous systems was performed. FINDINGS: Normal compressibility, flow augmentation, phasic flow and spontaneous flow is identified in both the left and right lower extremity deep venous systems. No intraluminal filling defects seen. IMPRESSION: No DVT in either lower extremity.
[2021-05-19] MEDS ORDERED: FAMOTIDINE 20 MG/2 ML VIAL IV SCH (09:00)
[2021-05-19 09:39] VITALS: O2SAT 96
== END 2021-05-19 09:00 | disposition left against medical advice (07) ==
LOC: ER 16:32 → ERHOLD 22:27
PROVIDERS: ADMIT Surgery; ATTEND Surgery
DX: R10.9 Unspecified abdominal pain (principal); Z53.29 Procedure and treatment not carried out because of patient's decision for other reasons; I10 Essential (primary) hypertension; G25.81 Restless legs syndrome; F90.9 Attention-deficit hyperactivity disorder, unspecified type; F41.9 Anxiety disorder, unspecified; F31.9 Bipolar disorder, unspecified; F17.210 Nicotine dependence, cigarettes, uncomplicated; Z88.8 Allergy status to other drugs, medicaments and biological substances; Z88.0 Allergy status to penicillin; Z20.822 Contact with and (suspected) exposure to COVID-19
CPT/HCPCS: 96365; 96361; 93005; 87088; 85025 ×2; 87086; 80048; 36415; 83735; 81025; 85610; 80076 ×2; 87077; 87186; 81003; 84484; 83690; 83880; 80307; 71275; 74176; 74177; 71045; 93970; 76705; 96375; 99285; U0003; Q9967; J2270 ×2; J7030 ×2; J2405 ×3; G0378 ×3